=== PATIENT | female | born 2000 | race Native Hawaiian/Other Pacific Islander ===

== ENCOUNTER 2022-05-10 08:09 | Inpatient (IN) | payer BC, OTHER ==
[2022-05-10] MEDS ORDERED: Zofran 4 MG/2 ML VIAL IV PRN (17:00)
[2022-05-10] MEDS ORDERED: XYLOCAINE 1% HCL 20 ML MDV IJ PRN (17:00)
[2022-05-10] MEDS: CYTOTEC PO SCH ×4 (17:28→23:25)
[2022-05-10 18:15] LABS: Absolute Neutrophil Ct (ANC) 7.67 x10^3/uL (1.4-6.9); Basophil (Absolute #) 0.06 x10^3/uL (0-0.4); Eosinophil % 1.3 % (0.00-5.0); Eosinophil (Absolute #) 0.14 x10^3/uL (0-0.5); Hematocrit 32.3 % (35-47); Hemoglobin 10.9 g/dL (12.0-16.0); Lymphocyte (Absolute #) 1.88 x10^3/uL (1.0-4.6); Mean Cell Volume 91.2 fL (78-100); Mean Corpuscular Hemoglobin 30.8 pg (26-32); Mean Corpuscular Hgb Concent. 33.7 g/dL (32-36); Mean Platelet Volume 9.9 fL (7.5-11.0); Monocyte (Absolute #) 0.63 x10^3/uL (0.0-1.3); Neutrophil % 73.5 % (36.0-66.0); Platelet Count 233 x10^3/uL (150-450); Red Blood Count 3.54 x10^6/uL (4.1-5.4); White Blood Count 10.4 x10^3/uL (4.0-10.5)
[2022-05-10 18:32] LABS: Amphetamine,Urine NEGATIVE (NEGATIVE); Barbiturate,Urine NEGATIVE (NEGATIVE); Benzodiazepine,Urine NEGATIVE (NEGATIVE); Cocaine,Urine NEGATIVE (NEGATIVE); Methadone,Urine NEGATIVE (NEGATIVE); Opiate,Urine NEGATIVE (NEGATIVE); PCP,Urine NEGATIVE (NEGATIVE); THC,Urine NEGATIVE (NEGATIVE)
[2022-05-10 19:12] LABS: ABO TYPING O; Antibody Screen NEGATIVE (NEGATIVE); RH TYPING POSITIVE
[2022-05-10] MEDS ORDERED: STADOL 2 MG IV PRN (21:35)
[2022-05-10] MEDS ORDERED: Ambien 5 MG Tablet PO PRN (21:38)
[2022-05-10] MEDS: TYLENOL EXTRA STRENGTH 500 MG PO PRN (22:35)
[2022-05-11] MEDS: CYTOTEC PO SCH ×3 (01:27→06:21)
[2022-05-11] MEDS ORDERED: Lactated Ringers 2,000 ML IV ONE (02:15)
[2022-05-11] MEDS: Lactated Ringers 1,000 ML IV SCH ×4 (03:47→13:28)
[2022-05-11] MEDS ORDERED: LANSINOH 40 GM TOP PRN (04:51)
[2022-05-11] MEDS ORDERED: Ephedrine Sulfate 50 MG/ML IV PRN (06:00)
[2022-05-11] MEDS ORDERED: PITOCIN 30 UNITS/ LR 500 ML 30 UNITS/500 ML PLAST..BAG IV SCH ×2 (06:00→10:00)
[2022-05-11] MEDS ORDERED: Lactated Ringers 1,000 ML IV ONE (06:00)
[2022-05-11] MEDS ORDERED: FENTANYL 2 MCG-BUPIV 0.125%-NS 250 ML Epidur 250 ML EPIDURAL SCH (06:00)
[2022-05-11] MEDS: TYLENOL EXTRA STRENGTH 500 MG PO PRN (06:20)
[2022-05-11] MEDS ORDERED: Adacel Vial IM ONE (09:00)
[2022-05-11] MEDS ORDERED: Dermoplast Spray TP PRN (11:00)
[2022-05-11] MEDS ORDERED: Sodium Chloride 0.9% 1000 ML 1,000 ML IV STA (12:03)
[2022-05-11] MEDS: TUCKS TP PRN (16:48)
[2022-05-11 16:50] LABS: Absolute Neutrophil Ct (ANC) 11.95 x10^3/uL (1.4-6.9); Basophil (Absolute #) 0.04 x10^3/uL (0-0.4); Eosinophil % 0.5 % (0.00-5.0); Eosinophil (Absolute #) 0.07 x10^3/uL (0-0.5); Hematocrit 30.8 % (35-47); Hemoglobin 10.3 g/dL (12.0-16.0); Lymphocyte (Absolute #) 1.14 x10^3/uL (1.0-4.6); Lymphocytes % 8.1 % (24.0-44.0); Mean Cell Volume 91.9 fL (78-100); Mean Corpuscular Hemoglobin 30.7 pg (26-32); Mean Corpuscular Hgb Concent. 33.4 g/dL (32-36); Mean Platelet Volume 9.6 fL (7.5-11.0); Monocyte (Absolute #) 0.73 x10^3/uL (0.0-1.3); Monocytes % 5.2 % (0.0-12.0); Neutrophil % 85.3 % (36.0-66.0); Platelet Count 205 x10^3/uL (150-450); Red Blood Count 3.35 x10^6/uL (4.1-5.4)
[2022-05-11] MEDS: FERREX 150 PO SCH (21:14)
[2022-05-11] MEDS: Docusate Sodium 100 MG PO SCH ×2 (21:15)
[2022-05-11] MEDS: MOTRIN 400 MG PO PRN (21:16)
[2022-05-11] MEDS: NORCO 5/325 MG PO PRN (22:27)
[2022-05-12] MEDS: MOTRIN 400 MG PO PRN (03:05)
[2022-05-12] MEDS: NORCO 5/325 MG PO PRN (03:06)
[2022-05-12 05:25] LABS: Basophil (Absolute #) 0.05 x10^3/uL (0-0.4); Eosinophil % 2.4 % (0.00-5.0); Eosinophil (Absolute #) 0.29 x10^3/uL (0-0.5); Hematocrit 28.8 % (35-47); Hemoglobin 9.5 g/dL (12.0-16.0); Lymphocyte (Absolute #) 2.05 x10^3/uL (1.0-4.6); Lymphocytes % 17.1 % (24.0-44.0); Mean Cell Volume 93.5 fL (78-100); Mean Corpuscular Hemoglobin 30.8 pg (26-32); Mean Platelet Volume 10.4 fL (7.5-11.0); Monocyte (Absolute #) 0.79 x10^3/uL (0.0-1.3); Monocytes % 6.6 % (0.0-12.0); Neutrophil % 72.8 % (36.0-66.0); Platelet Count 201 x10^3/uL (150-450); Red Blood Count 3.08 x10^6/uL (4.1-5.4)
[2022-05-12] MEDS ORDERED: PERCOCET TABLET 5/325MG PO PRN (06:00)
--- NOTE | 2022-05-12 08:10 | PCM.NOTE ---
Date and Time: 05/12/22808 Subjective Assessment: ppd 1 pt resting in bed and doing shruti with pelvic perineal discomfort vss afebrile abd; soft uterus; firm lochia; mild a/p sp ppd 1 sp 3rd degree repair dc home tomorrow should fu office 3 wks stable hgb; 9.5 OBJECTIVE DATA Vital Signs: Vital Signs - 24 hr Temp Pulse Resp BP BP BP Pulse Ox 05/12/22 00:00 123/81 05/11/22 20:00 98.5 F 52 L 20 147/82 99 05/11/22 17:30 68 05/11/22 16:45 68 16 130/77 05/11/22 16:15 80 18 115/79 05/11/22 15:45 68 18 122/71 05/11/22 15:30 68 18 122/71 05/11/22 15:15 80 18 115/79 05/11/22 15:00 98.3 F 57 L 18 139/77 139/77 05/11/22 14:45 18 05/11/22 14:30 68 18 153/108 05/11/22 14:15 68 16 140/92 05/11/22 14:00 68 05/11/22 13:45 60 18 147/86 05/11/22 13:30 60 20 147/71 05/11/22 13:15 60 20 147/71 05/11/22 12:45 80 20 136/92 05/11/22 12:30 80 20 136/92 05/11/22 12:15 80 20 130/80 05/11/22 11:45 57 L 20 113/77 05/11/22 11:15 61 20 98/54 05/11/22 11:00 98.3 F 61 20 98/54 05/11/22 10:30 61 20 123/73 05/11/22 10:00 64 20 110/62 05/11/22 09:30 50 L 20 125/75 05/11/22 09:00 54 L 20 126/79 100 05/11/22 08:30 54 L 20 131/75 100 05/11/22 08:15 63 16 121/72 100 Pain Assessment - Last Documented Pain Intensity [Bilateral 4 Lower] Pain Intensity 8 Pain Scale Used 0-10 Pain Scale Intake and Output: Intake & Output 05/09/22 05/10/22 05/11/22 05/12/22 11:59 11:59 11:59 11:59 Intake Total 79770 9101 Output Total 9551 5949 Balance 25809 5011 Weight 80.739 kg Lab Results: Lab Results-Last 24 Hours 05/11/22 05/12/22 Range/Units 16:49 05:25 WBC 14.0 H 12.0 H (4.0-10.5) x10^3/uL RBC 3.35 L 3.08 L (4.1-5.4) x10^6/uL Hgb 10.3 L 9.5 L (12.0-16.0) g/dL Hct 30.8 L 28.8 L (35-47) % MCV 91.9 93.5 (78-100) fL MCH 30.7 30.8 (26-32) pg MCHC 33.4 33.0 (32-36) g/dL RDW 12.0 12.0 (11.5-14.0) % Plt Count 205 201 (150-450) x10^3/uL MPV 9.6 10.4 (7.5-11.0) fL Gran % 85.3 H 72.8 H (36.0-66.0) % Immature Gran % (Auto) 0.6 H 0.7 H (0.00-0.4) % Nucleat RBC Rel Count 0.0 0.0 (0.00-0.1) % Eos # (Auto) 0.07 0.29 (0-0.5) x10^3/uL Immature Gran # (Auto) 0.08 H 0.08 H (0.00-0.03) x10^3u/L Absolute Lymphs (auto) 1.14 2.05 (1.0-4.6) x10^3/uL Absolute Monos (auto) 0.73 0.79 (0.0-1.3) x10^3/uL Absolute Nucleated RBC 0.00 0.00 (0.00-0.01) x10^3u/L Lymphocytes % 8.1 L 17.1 L (24.0-44.0) % Monocytes % 5.2 6.6 (0.0-12.0) % Eosinophils % 0.5 2.4 (0.00-5.0) % Basophils % 0.3 0.4 (0.0-0.4) % Absolute Granulocytes 11.95 H 8.70 H (1.4-6.9) x10^3/uL Basophils # 0.04 0.05 (0-0.4) x10^3/uL Multi-Disciplinary Progress Notes: Multi-Disciplinary Progress Notes 05/11/22 14:34 (created 05/11/22 15:47) Respiratory Note by Shoshana Sparks Baby delivered at 1434 baby crying after being suctioned. Baby layed on mom for skin to skin for a couple of minutes and baby was then brought over to the warmer for stimulation and drying the baby off. Baby pinked up after drying and stimulation. RR 52. Initialized on 05/11/22 15:47 - END OF NOTE Assessment/Plan (1) Vaginal delivery Current Visit: Yes Status: Acute Code(s): O80 - ENCOUNTER FOR FULL-TERM UNCOMPLICATED DELIVERY (2) Third degree laceration of perineum during delivery, Current Visit: Yes Status: Acute Code(s): O70.20 - THIRD DEGREE PERINEAL LACERATION DURING DELIVERY, UNSP
--- NOTE | 2022-05-12 08:22 | PCM.DS ---
Discharge Summary Date of Admission: 05/11/22 08:09 Admitting Physician: BINDU BOWERS DO Consults: Consults on Case 05/11/22 04:51 Notify Anesthesia Provider PRN 05/11/22 04:52 Notify Physician ROUTINE 05/11/22 06:00 Notify Anesthesia Provider PRN 05/11/22 16:53 Navigation ONCE Primary Care Provider: JOE RAMIREZ Allergies Allergies No Known Drug Allergies Allergy (Unverified 05/11/22 22:33) Hospital Summary - Hospital Course Hospital Course: pt admitted on may 10 for oral cytotec induction who was at 39 5/7 wks gestation and subsequently started on pitocin on may 11 and subsequently delivered live baby girl however did have a 3rd degree laceration repaired with 2 -0 vicryl suture and 2 -0 chromic suture and hemostasis was obtained. pt did co perineal discomfort throughout the night on may 12 and was given percocet and at this time stable for discharge on may 13. pt given percocet for pain management and toradol upon discharge and was advised to fu in office in 3 wks. all questions answered to her satisfaction and had a stable hgb level prior to discharge. - Vitals & Intake/Output Vital Signs: Vital Signs Temperature 98.5 F 05/11/22 20:00 Pulse Rate 52 L 05/11/22 20:00 Respiratory Rate 20 05/11/22 20:00 Blood Pressure 123/81 05/12/22 00:00 O2 Sat by Pulse Oximetry 99 05/11/22 20:00 Intake & Output: Intake & Output 05/09/22 05/10/22 05/11/22 05/12/22 11:59 11:59 11:59 11:59 Intake Total 09159 9121 Output Total 1050 4110 Balance 94532 5011 Weight 80.739 kg - Lab Result Diagrams: 05/12/22 05:25 Lab Results-Last 24 Hrs: Lab Results-Last 24 Hours 05/11/22 05/12/22 Range/Units 16:49 05:25 WBC 14.0 H 12.0 H (4.0-10.5) x10^3/uL RBC 3.35 L 3.08 L (4.1-5.4) x10^6/uL Hgb 10.3 L 9.5 L (12.0-16.0) g/dL Hct 30.8 L 28.8 L (35-47) % MCV 91.9 93.5 (78-100) fL MCH 30.7 30.8 (26-32) pg MCHC 33.4 33.0 (32-36) g/dL RDW 12.0 12.0 (11.5-14.0) % Plt Count 205 201 (150-450) x10^3/uL MPV 9.6 10.4 (7.5-11.0) fL Gran % 85.3 H 72.8 H (36.0-66.0) % Immature Gran % (Auto) 0.6 H 0.7 H (0.00-0.4) % Nucleat RBC Rel Count 0.0 0.0 (0.00-0.1) % Eos # (Auto) 0.07 0.29 (0-0.5) x10^3/uL Immature Gran # (Auto) 0.08 H 0.08 H (0.00-0.03) x10^3u/L Absolute Lymphs (auto) 1.14 2.05 (1.0-4.6) x10^3/uL Absolute Monos (auto) 0.73 0.79 (0.0-1.3) x10^3/uL Absolute Nucleated RBC 0.00 0.00 (0.00-0.01) x10^3u/L Lymphocytes % 8.1 L 17.1 L (24.0-44.0) % Monocytes % 5.2 6.6 (0.0-12.0) % Eosinophils % 0.5 2.4 (0.00-5.0) % Basophils % 0.3 0.4 (0.0-0.4) % Absolute Granulocytes 11.95 H 8.70 H (1.4-6.9) x10^3/uL Basophils # 0.04 0.05 (0-0.4) x10^3/uL - Procedures and Test Procedures and Tests throughout Hospitalization: Therapy Orders & Screens 05/11/22 15:51 Standby STAT Comment: Diagnosis: Induction of Labor Final Diagnosis/Problem List - Final Discharge Diagnosis/Problem (1) Vaginal delivery Current Visit: Yes Status: Acute Code(s): O80 - ENCOUNTER FOR FULL-TERM UNCOMPLICATED DELIVERY (2) Third degree laceration of perineum during delivery, Current Visit: Yes Status: Acute Code(s): O70.20 - THIRD DEGREE PERINEAL LACERATION DURING DELIVERY, UNSP - Discharge Disposition: Home, Self-Care Condition: Stable Prescriptions: New Oxycodone/APAP 5 mg/325 mg [Percocet Tablet 5/325Mg] 1 tab PO Q6HPRN PRN #30 tablet MDD 4 PRN Reason: Pain Ketorolac Trometh 10 mg Tab [TORAdol 10 MG TABLET] 10 mg PO Q6H PRN PRN #20 tablet MDD 4 PRN Reason: Pain No Action No.137/Iron/Folic Acd [ Tablet] 1 tablet PO DAILY Follow up with: JOE RAMIREZ NP [Primary Care Provider] - BINDU BOWERS DO [ACTIVE STAFF] - 3 weeks
[2022-05-12] MEDS: FERREX 150 PO SCH (09:33)
[2022-05-12] MEDS: Docusate Sodium 100 MG PO SCH ×2 (09:33→21:11)
[2022-05-12 09:35] LABS: HBsAg Screen Negative (Negative)
[2022-05-12] MEDS: PERCOCET TABLET 5/325MG PO PRN ×4 (12:59→22:53)
[2022-05-12] MEDS: TUCKS TP PRN (14:48)
[2022-05-13] MEDS: PERCOCET TABLET 5/325MG PO PRN (01:59)
[2022-05-13] MEDS: MOTRIN 400 MG PO PRN ×3 (02:00→14:04)
[2022-05-13] MEDS: NORCO 5/325 MG PO PRN ×3 (06:47→16:02)
[2022-05-13 08:46] VITALS: O2SAT 98
[2022-05-13] MEDS: Docusate Sodium 100 MG PO SCH (09:50)
[2022-05-13] MEDS: FERREX 150 PO SCH (09:51)
[2022-05-13 17:32] VITALS: BP 119/79; PULSE 74
== END 2022-05-13 16:43 | disposition home or self-care (01) | DRG 768 ==
LOC: OB 08:09 → OBSVTOIN 05-11 08:09
PROVIDERS: ADMIT Obstetrics & Gynecology; ATTEND Obstetrics & Gynecology
PROC: 10E0XZZ Delivery of Products of Conception, External Approach (ICD-10-PCS; principal; 2022-05-11)
PROC: 0DQR0ZZ Repair Anal Sphincter, Open Approach (ICD-10-PCS; 2022-05-11)
DX: O70.20 Third degree perineal laceration during delivery, unspecified (principal); Z37.0 Single live birth; Z3A.39 39 weeks gestation of pregnancy; Z20.828 Contact with and (suspected) exposure to other viral communicable diseases
CPT/HCPCS: 36415; 59400; 80307; 85025; 86850; 86900; 86901; 87340; 90471; 90715; 94799; G0378; J2590; A9270-GY